=== PATIENT | female | born 1950 | race Caucasian/White ===

== ENCOUNTER 2021-02-04 11:47 | Day surgery (SDC) | payer MEDICARE, SELFPAY ==
--- NOTE | 2021-01-27 10:05 | NURSING ---
Unable to reach pt for PAT phone interview via phone number listed in demographics. Bridgette at Dr Whiteside's office has the same number and no additional phone numbers for the pt. Bridgette suggests to attempt PAT in couple days as more minutes may be added to phone if phone is a [id number] Phone.
--- NOTE | 2021-02-03 10:33 | EKG12_ITS ---
Test Reason : PRE OP Blood Pressure : / mmHG Vent. Rate : 072 BPM Atrial Rate : 072 BPM P-R Int : 138 ms QRS Dur : 084 ms QT Int : 416 ms P-R-T Axes : 033 016 039 degrees QTc Int : 455 ms Normal sinus rhythm with sinus arrhythmia Normal ECG Confirmed by ALEX GÓMEZ, YNES ([id number]), digital editor KIRTI WALKER ([id number]) on 02/04/2021 8:33:34 AM Referred By: Juju Whiteside Confirmed By:YNES JOHNSON MD
[2021-02-03 11:33] LABS: Hematocrit 40.4 % (37-47); Hemoglobin 13.5 g/dL (12.0-15.0); Mean Corp Hgb Conc 33.4 g/dL (32-36); Mean Corpuscular Hgb 30.8 pg (27.0-32.0); Mean Platelet Vol. 10.1 fl (6.2-12.0); Platelet Count 271 K/mm3 (150-450); RBC Distribution Width CV 12.3 % (11.6-14.6); RBC Distribution Width SD 41.9 fl (35.1-43.9); Red Blood Count 4.39 M/mm3 (4.2-5.4); White Blood Count 4.8 K/mm3 (4.4-11.0)
[2021-02-03 11:40] LABS: Prothrombin Time (Protime)PT. 12.5 SECONDS (11.7-14.9)
[2021-02-03 11:41] LABS: Partial Thromboplast Time 28.4 Seconds (24.1-36.2)
[2021-02-03 12:11] LABS: AST(SGOT) 24 U/L (15-37); Alanine Aminotransfer ALT/SGPT 35 U/L (13-56); Albumin, Serum 3.6 g/dL (3.2-5.0); Alkaline Phosphatase 82 U/L (45-117); Bilirubin, Direct 0.09 mg/dL (0.00-0.30); Globulin 3.8 g/dL (2.2-4.2); Protein, Total 7.4 g/dL (6.4-8.2)
--- NOTE | 2021-02-03 15:15 | PCM.HP.BLA ---
History and Physical Date of Admission: 02/04/21 Bernadette Son 1950 REFERRING PHYSICIAN: Talisha Daniel APRN.CNP CHIEF COMPLAINT: Rt inguinal hernia HPI: The patient is a 70 year old female presents with right groin pain. She notes this about two weeks ago. She notes a bulge in the location. She had previous laparoscopic left inguinal hernia repair with mesh. CT scan 12/06/2020 - small right inguinal hernia containing a short segment of non-obstructed small bowel. She denies obstructive gastrointestinal or urinary symptoms. PAST MEDICAL HISTORY ? Anemia, unspecified ? Benign neoplasm of colon ? Benign neoplasm of stomach ? Chronic low back pain ? Diverticulitis of colon (without mention of hemorrhage)(562.11) ? Iron deficiency anemia ? Mitral valve disorders(424.0) echo showed trivial MR. ? Osteoarthritis ? Other abnormal heart sounds heart murmur ? Snoring ? Unspecified hemorrhoids without mention of complication PAST SURGICAL HISTORY ? BREAST BIOPSY Left 05/12/2017 ? COLONOS W/REM POLYP SNARE diverticulosis, polyp at 30cm ? COLONOSCOPY 04/06/2016 ? D&C, DIAG AND/OR THERAPEUTIC ? EGD W/O BRSH SPECIMEN W/BX antral polyp ? HERNIA REPAIR HX 2015 left inguinal ? LAPAROSCOPIC CHOLEYCYSTECTOMY 2001 Cholecystectomy, lap ? LIGATE FALLOPIAN TUBE ? MAMMO STEREOTACTIC CORE BIOPSY LT 2001 ? PAST SURGICAL HISTORY OF 2000 vaginal fistula ? SIGMOIDOSCOPY 2002 ? TOTAL ABDOM HYSTERECTOMY 05/13/00 menorrhagia, enlarged uterus. Current Outpatient Medications ? calcium carbonate/vitamin D2 (CALCIUM + VITAMIN D ORAL) Take by mouth. 500 mg of calcium and 1000 units of vitamin d daily ? glucosamine/chondr del castillo A sod (OSTEO BI-FLEX ORAL) Take by mouth once daily. ? ascorbic acid, vitamin C, (VITAMIN C) 250 mg tablet Take 250 mg by mouth once daily. ? MULTIVITAMIN ORAL Take by mouth. ALLERGIES: Bactrim Ds [Sulfamethoxazole-Trimethoprim], Cold Medicines [Other], Demerol [Meperidine Hcl], and Vicodin [Hydrocodone-Acetaminophen] PERSONAL HISTORY: ? Smoking status: Former Smoker Quit date: 06/16/1969 Years since quittin.5 ? Smokeless tobacco: Never Used ? Tobacco comment: Quit 40 years ago after brief period of smoking Vaping Use ? Vaping Use: Never used Substance Use Topics ? Alcohol use: Yes Comment: 2/year ? Drug use: No FAMILY HISTORY ? Breast Cancer Mother ? Cancer Mother spinal ? Cancer Father throat and skin ? Diabetes Father pre-diabetes in later life when gained wt ? other (Other) Brother Brain/Spinal Disorder (from ) ? Cancer Brother Melenoma ? Diabetes Brother Pre diabetiic ? Cancer Brother Skin ? Thyroid Brother Cancer ? Hypertension Brother ? No Known Problems Brother ? Hypertension Brother ? other (Kidney Removed) Brother ? No Known Problems Sister ? Heart Maternal Grandfather ? Diabetes Paternal Grandmother ? COPD Daughter REVIEW OF SYSTEMS: General: The patient denies fatigue, denies weight loss, denies weight gain, denies feeling hot, and denies feelings of cold. Eyes: The patient denies glaucoma, denies eye injury/surgery, wears glasses or contacts. Ear/Nose/Throat: The patient denies allergies, denies hayfever, denies ear infections, and denies bloody noses. Cardiovascular: The patient denies chest pain, denies heart disease, denies high blood pressure,denies cardiac stent, denies prior heart attack, denies irregular heart beat, denies high cholesterol, denies poor circulation, denies heart failure, other cardiac issues, denies claudication, denies cold feet, denies peripheral arterial stent. Respiratory: The patient denies tuberculosis, denies pneumonia, denies frequent cough, denies pulmonary embolism, denies shortness of breath, and denies coughing up blood. Gastrointestinal: The patient denies difficulty swallowing, denies acid reflux, denies ulcers, denies vomiting, denies jaundice/hepatitis, denies gallbladder problems, denies black or tarry stools, denies hemorrhoids, denies bleeding from rectum, denies diverticulitis, NOTES constipation, denies diarrhea, denies loss of stool control, and denies hernias. Kidney/Bladder: The patient denies kidney stones, denies urine infections, and denies bloody urine. Skin: The patient denies a history of skin cancer, denies bleeding/changing moles, and denies a history of skin rash. Neurologic: The patient denies a history of epilepsy/convulsions, denies headaches, denies head/spinal injuries, and denies stroke/TIA. Psychiatric: The patient denies psychiatric medications, denies depression, and denies voices, denies substance abuse. Endocrine: The patient denies thyroid disorders, denies diabetes, and denies hormonal problems. Hematologic: The patient denies a history of bruising, denies bleeding, and denies anemia, denies blood clots. Infections: The patient denies a history of measles and mumps, denies rheumatic fever, and denies sexually transmitted diseases. Musculoskeletal: The patient denies back pain/injury, denies back problems, denies sciatica, denies knee/foot trouble, denies arthritis, or denies gout. When was patient's last Mammogram screening? N/A Last Colonoscopy: 2015 Tony Zarco SALES ORDER PROCESSOR PHYSICAL EXAMINATION: General: The patient is 70 year old female, well nourished, well hydrated in no acute distress. The patient is oriented to time, place, and person. VITALS: Pulse 102, temperature 36.8 ?C (98.2 ?F), height 149.9 cm (4' 11), weight 79.1 kg (174 lb 6.4 oz), SpO2 97 %. Body mass index is 35.22 kg/m?. Head ? Normocephalic. EOM intact with sclera clear and no icterus noted. Wearing glasses. Neck - supple with no jugular venous distention noted. Trachea is midline. Lungs ? clear to auscultation. Normal breath sounds. No rales/rhonchi/wheezing noted. No labored breathing noted, such as retractions. No cough heard. Heart ? normal S1 and S2 auscultated. No rubs/clicks/murmurs noted. Regular rate. Abdomen ? soft and benign. Normal bowel sounds. Possible bulge in the area of the right inguinal canal. Difficult to determine if any masses or organomegaly due to body habitus. Extremities ? no calf tenderness noted. No pitting edema noted. Skin ? normal skin integrity. Neurological ? gait normal, no focal deficits noted. Psych ? calm and appropriate IMPRESSION: right inguinal hernia PLAN: I have discussed the above with the patient. I have offered right inguinal hernia repair with mesh. I have explained the procedure to the patient. I have counseled the patient as to the risks of the procedure, including but not limited to: infection, bleeding, injury to any blood vessels/nerves, scar tissue, injury to any intraabdominal organs, injury to bowel/bladder, intraabdominal abscess/bleeding, recurrence of hernia, wound infections, complications of anesthesia, etc. ? the patient understands. The patient wishes to proceed. She wishes to have surgery at [facility]. I have encouraged her to return to this clinic sooner if any worsening signs/symptoms. I have answered all questions to the patient?s satisfaction and the patient has no further questions. Diagnoses: (K40.90) Right inguinal hernia (primary encounter diagnosis) (Z68.35) BMI 35.0-35.9,adult Return to Clinic: The patient is instructed to follow-up with me after the procedure.
[2021-02-04] VITALS (9 sets, daily range): BP systolic 145–163; BP diastolic 79–98; PULSE 79–96; RESP 16; TEMP 35.9–36.4; O2SAT 91–100; BMI 33.5
[2021-02-04] MEDS: Lactated Ringers 1,000 ML 75 ML IV ×2 (07:00→15:39)
[2021-02-04] MEDS: Cefazolin 2 GM in 0.9% Normal Saline 100 ML IV (14:06)
--- NOTE | 2021-02-04 15:12 | OP.PCM_ITS ---
Report of Operation Date of Procedure: 02/04/21 Pre-Operative Diagnosis: right inguinal hernia Post-Operative Diagnosis: right femoral hernia and direct inguinal hernia Surgery/Procedure Performed:: repair of right femoral hernia with plug/patch mesh Description of Surgical Findings:: direct inguinal hernia and femoral hernia noted Surgeon: Juju Whiteside quill skinner: Berlin Cook Type of Anesthesia: General Anesthesiologist: Melissa Perez Specimen's removed: none Estimated Blood Loss (mL): 20 ml Fluids Replaced: 1000 ml RL Description of Procedure: After informed consent was obtained, the patient was brought to the Operating Room. Appropriate time out protocol was followed. She was then placed in the supine position. The patient was then placed under anesthesia. The right groin area and lower torso and genitalia were then prepped with a sterile surgical skin preparation. Sterile surgical drapes were placed. This skin and subcutaneous tissues were then widely infiltrated with the local anesthetic. A skin incision was then made with a 15 blade scalpel over the hernia site in a transverse oblique fashion, after ascertaining proper landmarks. It was carried down to the subcutaneous tissues using sharp dissection. Any hemorrhage was adequately controlled with electrocautery. Division of the tissues along the incision line continued down to the external oblique fascia was identified. It was then divided along its fibers using sharp dissection carefully avoiding any injury to any blood vessels/nerves. The round ligament was then identified along the inguinal canal and it was then isolated using blunt dissection and tagged with a [place] drain. The hernia defect was identified as a direct inguinal hernia. There was also a femoral hernia noted. No indirect inguinal sac was identified. The repair of the hernia was then done in the [place] fashion using the plug/patch mesh. The confluence of the internal oblique and transversalis fascia was sutured at one point to the plug mesh which was positioned in the preperitoneal space; it was sutured medially to the pubic tubercle and inferiorly to Raul's ligament using interrupted 0 prolene suture. The round ligament was placed back in its proper anatomical position. The patch mesh was then placed to recreate the inguinal floor. This was done from the pubic tubercle to the level of overlying the femoral vessels and the internal ring was re-created and just large enough for the tip of my finger. The external oblique fascia was then reapproximated over the inguinal canal to close the roof of the inguinal canal with a running 0 vicryl suture, carefully avoiding any entrapment of nerves/blood vessels. Emma's fascia was reapproximated with interrupted 3-0 vicryl sutures. The skin incision was reapproximated with a running 4-0 Monocryl suture. Cavilon and steristrips were placed to reinforce the skin closure and a sterile opsite dressing was applied. The patient was brought from to the Recovery Room in stable condition. Complications none noted Admit VTE Documentation VTE Mechan Device Prophylaxis: SCD's
[2021-02-04] MEDS: Bupivacaine Mpf 0.5% 30 ML VIAL (15:15)
--- NOTE | 2021-02-04 15:40 | EX.PCM.DISCH ---
Discharge Instructions Follow Up Care Test Results: Test results from this visit will be discussed in further detail at your follow-up appointment, if applicable. Discharge Plan Admission Attending Provider: Juju Whiteside Primary Care Provider: Chang Martinez Instructions Additional Instructions / Restrictions: Recommended pain control regimen - May take 600 mg ibuprofen (Motrin) and then in 3-4 hours, may take 650 mg acetaminophen (Tylenol), then in 3-4 hours may take 600 mg ibuprofen, then in 3-4 hours may take 650 mg acetaminophen and so on for 2-3 days May take narcotic pain medication for pain that is not controlled by above and at night for comfort through the night Leave dressings in place May shower, do not scrub in the areas of the dressings as they may unravel. Do not soak - no tub baths/swimming Ice applied to areas of discomfort may help (recommend use of ice packs liberally) No lifting/pushing/pulling greater than 10 pounds for a month. Regular diet as tolerated, drink plenty of fluids. . For inguinal hernia repairs - sit in a Lazy-Boy type chair or similar position for comfort and elevate legs, place ice packs in the affected area. Please call my office for an appointment to see me in 1-2 weeks. Office number is If any questions, please call my office at and ask the preform machine operator for the general surgery nurses desk Discharge Orders/Prescriptions Prescriptions: New oxycodone-acetaminophen [Percocet] 5-325 mg tablet 1 tab PO Q8H PRN (Reason: pain) 5 Days Qty: 15 RF: 0 No Action Vitamin C 300 mg Tablet,Chewable 900 mg PO DAILY RF: 0 cranberry 400 mg Capsule 400 mg PO DAILY RF: 0 glucosamine-chondroitin [Osteo Bi-Flex] 250-200 mg Tablet 2 tab PO BID RF: 0 aspirin 81 mg Capsule 81 mg PO DAILY RF: 0 Referrals / Follow Up: Chang Martinez MD [Primary Care Provider] - Disposition Disposition (needs filled in before D/C Order can be placed): Home, Self Care
--- NOTE | 2021-02-04 16:05 | SUR.PHASEI ---
In PACU for phase 2.
--- NOTE | 2021-02-04 16:09 | SUR.PHASEI ---
Attempted to transition to phase 2; patient had emesis and nausea. remain in phase 1 and medicate per order.
== END 2021-02-04 17:40 | disposition home or self-care (01) ==
LOC: SDC 11:48 → AC 11:48
PROVIDERS: Anesthesiology; PCP Family Medicine; Referring Provider Surgery; Visit Provider Surgery
PROC: (CPT 49505; principal; 2021-02-04 13:20)
DX: K40.90 Unilateral inguinal hernia, without obstruction or gangrene, not specified as recurrent (principal); K41.90 Unilateral femoral hernia, without obstruction or gangrene, not specified as recurrent; M19.90 Unspecified osteoarthritis, unspecified site; Z87.891 Personal history of nicotine dependence
CPT/HCPCS: 00830; 49505; 49550; 36415; 80076; 85027; 85610; 85730; 93005; J7120; C1781; J2405

== ENCOUNTER 2021-09-09 10:45 | Day surgery (SDC) | payer MEDICARE, SELFPAY ==
[2021-09-09] VITALS (7 sets, daily range): BP systolic 123–140; BP diastolic 70–76; PULSE 77–89; RESP 14–16; TEMP 36.6–37.2; O2SAT 95–98; BMI 35.4
--- NOTE | 2021-09-09 09:03 | PCM.HP.BLA ---
History and Physical Date of Admission: 09/09/21 Bernadette Son 1950 ? ? REFERRING PHYSICIAN: Ofelia Gomez MD ? CHIEF COMPLAINT: Left Breast lesion ? HPI: The patient is a 70 year old female presents with high risk lesion via pathology from needle core breast biopsy. She had undergone left breast stereotactic biopsy done at [facility] Breast imaging on 08/18/2021. ? PATHOLOGY - Left breast, lower outer quadrant, core biopsies: - Benign breast tissue with florid usual ductal hyperplasia, sclerosing adenosis, small intraductal papillomas, and radial scar. Sections demonstrate benign breast parenchyma with multiple ducts involved by florid usual ductal hyperplasia which on immunohistochemical stains shows patchy ER positivity and a mosaic pattern with cytokeratin 5/6. ?Immunohistochemical stains for p40 and SMMS reveal the presence of myoepithelial cells in the small glands of the radial scar and no evidence of an invasive process. ? ? PAST MEDICAL HISTORY ? Anemia, unspecified ? ? Benign neoplasm of colon ? ? Benign neoplasm of stomach ? ? Chronic low back pain ? ? Diverticulitis of colon (without mention of hemorrhage)(562.11) ? ? Iron deficiency anemia ? ? Mitral valve disorders(424.0) ? ? echo showed trivial MR. ? Osteoarthritis ? ? Other abnormal heart sounds ? ? heart murmur ? Snoring ? ? Unspecified hemorrhoids without mention of complication ? ? PAST SURGICAL HISTORY ? BREAST BIOPSY Left 05/12/2017 ? BX OF BREAST; INCISIONAL Left 08/18/2021 ? COLONOSCOPY ? 04/06/2016 ? COLSC FLX W/RMVL OF TUMOR POLYP LESION SNARE TQ ? 01/24/2009 ? diverticulosis, polyp at 30cm ? DILATION & CURETTAGE DX&/THER NONOBSTETRIC ? ? ? EGD TRANSORAL BIOPSY SINGLE/MULTIPLE ? 01/24/2009 ? antral polyp ? HERNIA REPAIR HX ? 2016 ? left inguinal ? LAPAROSCOPY SURG CHOLECYSTECTOMY ? 2001 ? Cholecystectomy, lap ? LIG/TRNSXJ FLP TUBE ABDL/VAG APPR UNI/BI ? ? ? MAMMO STEREOTACTIC CORE BIOPSY LT ? 2001 ? PAST SURGICAL HISTORY OF ? 2000 ? vaginal fistula ? RPR 1ST FEM HRNA ANY AGE REDUCIBLE Right 02/04/2021 ? SIGMOIDOSCOPY ? 2002 ? TOTAL ABDOMINAL HYSTERECT W/WO RMVL TUBE OVARY ? 05/13/2000 ? menorrhagia, enlarged uterus. ? ? Current Outpatient Medications ? benzonatate (TESSALON PERLE) 100 mg capsule Take 1 capsule by mouth twice daily as needed for cough. (Patient not taking: Reported on 07/21/2021 ) ? fluticasone (FLONASE) 50 mcg/actuation nasal spray Use 2 Sprays in each nostril once daily. Rinse mouth after use. (Patient not taking: Reported on 07/21/2021 ) ? calcium carbonate/vitamin D2 (CALCIUM + VITAMIN D ORAL) Take by mouth. 500 mg of calcium and 1000 units of vitamin d daily ? glucosamine/chondr del castillo A sod (OSTEO BI-FLEX ORAL) Take by mouth once daily. ? ascorbic acid, vitamin C, (VITAMIN C) 250 mg tablet Take 250 mg by mouth once daily. ? MULTIVITAMIN ORAL Take by mouth once daily. ? ? ? ALLERGIES: Bactrim Ds [Sulfamethoxazole-Trimethoprim], Cold Medicines [Other], Demerol [Meperidine Hcl], and Vicodin [Hydrocodone-Acetaminophen] ? PERSONAL HISTORY: Social History ?Tobacco Use ? Smoking status: Former Smoker ? ? Quit date: 06/16/1969 ? ? Years since quittin.2 ? Smokeless tobacco: Never Used ? Tobacco comment: Quit 40 years ago after brief period of smoking Vaping Use ? Vaping Use: Never used Substance Use Topics ? Alcohol use: Yes ? ? Comment: 2/year ? Drug use: No ? FAMILY HISTORY ? Breast Cancer Mother ? ? Cancer Mother ? ? spinal ? Cancer Father ? ? throat and skin ? Diabetes Father ? ? pre-diabetes in later life when gained wt ? other (Other) Brother ? ? Brain/Spinal Disorder (from ) ? Cancer Brother ? ? Melenoma ? Diabetes Brother ? ? Pre diabetiic ? Cancer Brother ? ? Skin ? Thyroid Brother ? ? Cancer ? Hypertension Brother ? ? No Known Problems Brother ? ? Hypertension Brother ? ? other (Kidney Removed) Brother ? ? No Known Problems Sister ? ? Heart Maternal Grandfather ? ? Diabetes Paternal Grandmother ? ? COPD Daughter ? ? ? REVIEW OF SYSTEMS: ?General:???The patient denies fatigue, denies weight loss, denies weight gain, denies feeling hot, and denies feelings of cold. ?Eyes: ?The patient denies glaucoma, denies eye injury/surgery, wears glasses or contacts. ?Ear/Nose/Throat: ?The patient denies allergies, denies hayfever, denies ear infections, and denies bloody noses. ?Cardiovascular: ?The patient denies chest pain, denies heart disease, denies high blood pressure,denies cardiac stent, denies prior heart attack, denies irregular heart beat, denies high cholesterol, ?denies poor circulation, denies heart failure, other cardiac issues, denies claudication, denies cold feet, denies peripheral arterial stent. ?Respiratory: ?The patient denies tuberculosis, denies pneumonia, denies frequent cough, denies pulmonary embolism, denies shortness of breath, and denies coughing up blood. ?Gastrointestinal: ?The patient denies difficulty swallowing, denies acid reflux, denies ulcers, denies vomiting, denies jaundice/hepatitis, notes gallbladder problems, denies black or tarry stools, denies hemorrhoids, denies bleeding from rectum, denies diverticulitis, denies constipation, denies diarrhea, denies loss of stool control, and notes hernias. ?Kidney/Bladder: ?The patient denies kidney stones, notes urine infections, and denies bloody urine. ?Skin: ?The patient denies a history of skin cancer, denies bleeding/changing moles, and denies a history of skin rash. ?Neurologic: ?The patient denies a history of epilepsy/convulsions, denies headaches, denies head/spinal injuries, and denies stroke/TIA. ?Psychiatric: ?The patient denies psychiatric medications, denies depression, and denies voices, denies substance abuse. ?Endocrine: ?The patient denies thyroid disorders, denies diabetes, and denies hormonal problems. ?Hematologic: ?The patient denies a history of bruising, denies bleeding, and denies anemia, denies blood clots. ?Infections: ?The patient notes a history of measles and mumps, denies rheumatic fever, and denies sexually transmitted diseases. ?Musculoskeletal: ?The patient denies back pain/injury, denies back problems, denies sciatica, denies knee/foot trouble, denies arthritis, or denies gout. ? ? PHYSICAL EXAMINATION: ? General: The patient is 70 year old female, well nourished, well hydrated in no acute distress. The patient is oriented to time, place, and person. ? VITALS: Blood pressure 164/91, pulse 88, temperature 36.9 ?C (98.4 ?F), height 149.9 cm (4' 11), weight 77.6 kg (171 lb), SpO2 97 %. Body mass index is 34.54 kg/m?. ? Head: Normal cephalic, atraumatic ? Eyes: pupils are equally round, sclera are clear/anicteric ? Neck is supple with no tracheal deviation ? Chest/breast: slight ecchymoses at biopsy site - left breast lower outer ? Respiratory: Normal respiratory excursion and pattern. ? Abdominal exam: benign ? Extremities: no clubbing, cyanosis or edema. ? Neuro: non focal ? Psych: normal mood ? ? IMPRESSION: high risk breast pathology ? PLAN: I have discussed the above with the patient. I have explained radial scar to patient. Though I suspect that she is at low risk for breast cancer given the above, she does have a family history of breast cancer (sister) I have offered left breast biopsy via wire localization. I have explained the procedure to the patient. I have counseled the patient as to the risks of the procedure, including but not limited to: infection, bleeding, injury to any blood vessels/nerves, scar tissue, wound infections, complications of anesthesia, etc. ? the patient understands. The patient wishes to proceed. ? ? I have answered all questions to the patient?s satisfaction and the patient has no further questions. ? ? 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
[2021-09-09] MEDS: Lactated Ringers 1,000 ML 75 ML IV (11:18)
--- NOTE | 2021-09-09 11:36 | BI_ITS ---
SURGICAL BREAST SPECIMEN RADIOGRAPH CLINICAL: Document presence of tissue clip marker in biopsy specimen. FINDINGS: Specimen shows presence of tissue clip marker. Electronically Signed: Christiano Kidd MD at 13:31 EDT , BI/Breast Biopsy Specimen
[2021-09-09] MEDS: Lidocaine 1% /Epi 1:100 (20ml) 20 ML Vial (12:40)
[2021-09-09] MEDS: Cefazolin 2 GM in 0.9% Normal Saline 100 ML IV (12:40)
--- NOTE | 2021-09-09 13:16 | BR_PTH ---
PATIENT: HERMELINDA DEJESUS LOC: [facility] [place] U#:[id number] AGE/SX: 70/F ROOM: RE09/09/[address]: Dr. Juju Whiteside MD : 1950 BED: DIS: 09/09/2021 SPEC #: [id number] RECD: 09/09/21 13:22 STATUS: PEE RE #: [id number] JUDY: 09/09/21 13:[address]: Juju Whiteside DEPT: SURGICAL PATHOLOGY RECD BY: Geeta Shaver ENTERED: 09/10/21 10:58 SP TYPE: MAMOPLASTY OTHR DR: Dr. Chang Martinez MD Tissues: Left breast, NOS Procedures: Surgery Specimen Level V HEADER OPERATION: Left breast biopsy via needle localization PRE-OP DIAGNOSIS: High risk breast pathology TISSUE SUBMITTED: Left breast lesion MICROSCOPIC DIAGNOSIS Left breast, excisional biopsy with needle localization: Florid intraductal hyperplasia with focal atypia. Fibrocystic changes and adenosis. Changes consistent with previous biopsy site. Negative for malignancy. RAMA:juarez 09/12/2021 COMMENT Case has been reviewed in consultation with Dr. Santos who concurs with the above diagnosis. IDC:AM MICROSCOPIC DESCRIPTION Slides are reviewed. GROSS DESCRIPTION Received fresh and postfixed in formalin is one container labeled with the patient's name and not further designated. The specimen consists of a piece of fibroadipose tissue with needle localization measuring 7?x 3 x 2.5 cm. The specimen is not oriented. The specimen is inked, serially sectioned and reveal rosas-yellow fibroadipose cut surfaces without any mass lesion. The entire specimen is submitted in 17 cassettes. Sections are submitted after additional fixation. / RAMA:juarez 09/10/2021 TC:5 CPT: 78123
--- NOTE | 2021-09-09 13:31 | PCM.OPRPT ---
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 Appropriate time out protocol was followed. The patient was then placed in the prone position on the [place] stereotactic table. The patient?s left breast was placed in the opening at the head of the table. A music composition teacher compression mammogram was then obtained in the lateral view. The marker clip that was previously placed was identified. Stereo pictures of the lesion were then taken for XYZ coordinates. The Kopans needle was then positioned where it would be entering into the patient?s breast. The skin at this site was then cleansed with a surgical skin preparation. The skin and subcutaneous tissues at this site were then infiltrated with 1% xylocaine. The Kopans needle was then positioned into the patient?s breast at the proper coordinates of depth. A music composition teacher film was obtained which revealed the wire in proper position. The patient was then placed in the supine position and the wire was taped into place. A unilateral mammogram in the CC and MLO view were then taken for use in the OR. The patient tolerated this portion of the procedure well and was brought to the AC awaiting surgery in the OR. The patient was then brought to the Operating Room. Appropriate time out protocol was followed. The patient was then placed on the operating table in the supine position. A wire had already been placed in the stereotactic biopsy room in the radiology department as described above. The left breast with the wire in placed was then prepped with a sterile surgical skin preparation and sterile surgical drapes were placed. The skin and subcutaneous tissues at the site of the breast lesion was then infiltrated with 1% xylocaine with epinephrine. A transverse skin incision was then made at the wire entrance site in the lateral aspect of the breast, with a 15 blade scalpel and carried down through to the subcutaneous tissues. Hemostasis was controlled with electrocautery. The wire was then palpated out within the breast tissue. The breast tissue surrounding the wire was then carefully palpated out and from the surrounding tissues using electrocautery. The breast tissue, once from the breast, was then forwarded to the radiology department, where a specimen mammogram revealed that the marker clip was within the specimen. The breast tissue was then forwarded to pathology for analysis. The wound cavity was carefully examined. No further suspicious tissue was palpated or visualized. Hemostasis was carefully controlled with electrocautery. The subdermal tissues were then approximated with vicryl suture. The incision was then reapproximated close using running monocryl suture. Cavilon and steristrips were then placed to reinforce the skin closure. Sponge, needle, and instrument count were verified and correct at the time of skin closure. A sterile dressing was then applied. The patient was then brought to the Recovery Room in stable condition. Complications none noted Admit VTE Documentation VTE Present on Admission: Yes VTE Mechan Device Prophylaxis: SCD's
== END 2021-09-09 23:59 | disposition home or self-care (01) ==
LOC: SDC 10:46 → AC 10:49
PROVIDERS: PCP Family Medicine; Visit Provider Surgery
PROC: (CPT 19101; principal; 2021-09-09 12:15)
DX: N60.22 Fibroadenosis of left breast (principal); Z79.899 Other long term (current) drug therapy; Z87.891 Personal history of nicotine dependence
CPT/HCPCS: 19101; 19281; 76098; 88305; 88307; J7120; J2405

== ENCOUNTER → 2023-03-17 | Outpatient (CLI) | payer MEDICARE, SELFPAY ==
--- NOTE | 2023-03-16 | EGD_PTH ---
PATIENT: HERMELINDA DEJESUS LOC: [facility] U#:[id number] AGE/SX: 72/F ROOM: RE03/17/[address]: Dr. Juju Whiteside MD : 1950 BED: DIS: 03/17/2023 SPEC #: [id number] RECD: 03/17/23 15:02 STATUS: PEE REQ #: [id number] JUDY: 03/16/23 00:[address]: Juju Whiteside DEPT: SURGICAL PATHOLOGY RECD BY: Geeta Shaver ENTERED: 03/18/23 08:46 SP TYPE: EGD BIOPSY VERA DR: Dr. Chang Martinez MD Tissues: A - Gastric mucous membrane B - Esophagus, NOS Procedures: Special Stain Group II Surgery Specimen Level IV Alcian Blue/PAS (control) HEADER OPERATION: EGD / colonoscopy PRE-OP DIAGNOSIS: Epigastric pain, nausea, rectal pain TISSUE SUBMITTED: A - Antral biopsy H/H, B - Gastroesophageal junction biopsy MICROSCOPIC DIAGNOSIS A. Gastric antrum, biopsy: Chronic gastritis. See comment. B. Gastroesophageal junction, biopsy: Fragments of benign squamous mucosa. Gastroesophageal junctional mucosa consisting primarily of squamous mucosa. No evidence of goblet cell metaplasia. See comment. AM:juarez 03/19/2023 COMMENT A. The results of immunohistochemistry for Helicobacter pylori will be reported separately ([id number]). B. Alcian blue/PAS stain with matched control supports the above diagnosis. MICROSCOPIC DESCRIPTION Slides are reviewed. GROSS DESCRIPTION A - Received in fixative is one container labeled with the patient's name and designated antral biopsy. The specimen consists of two irregular fragments of light rosas soft tissue that in aggregate measure 0.6 x 0.5 x 0.1 cm. The specimen is totally submitted in one cassette. B - Received in fixative is one container labeled with the patient's name and designated GE junction biopsy. The specimen consists of one irregular fragment of light rosas soft tissue that measures 0.3 x 0.2 x 0.1 cm. The specimen is totally submitted in one cassette. / AM:juarez 03/18/2023 TC:3 CPT: 87485 x2, 18424
--- NOTE | 2023-03-17 | IMM_PTH ---
PATIENT: HERMELINDA DEJESUS LOC: [facility] U#:[id number] AGE/SX: 72/F ROOM: RE03/17/[address]: Dr. Juju Whiteside MD : 1950 BED: DIS: 03/17/2023 SPEC #: [id number] RECD: 03/18/23 14:10 STATUS: PEE REQ #: [id number] JUDY: 03/17/23 00:[address]: Juju Whiteside DEPT: IMMUNOHISTOCHEMISTRY RECD BY: Tonja Ramsey ENTERED: 03/18/23 14:12 SP TYPE: IMMUNO OTHR DR: Dr. Chang Martinez MD Tissues: A - Stomach, NOS Procedures: H Pylori (initial) PHYSICIAN & INSTITUTION [place] [id number] SPECIMEN INFORMATION: Tissue Source: A - Antral biopsy Clinical Info: Epigastric pain, nausea, rectal pain Specimen Number: [id number] CPT code: 57331 METHODOLOGY: Deparaffinized sections of prefer/formalin-fixed tissue or PAP/DQ stained slides are incubated with monoclonal/polyclonal antibodies/oligonucleotide probes. Localization is made via biotin free immunoperoxidase method. Appropriate controls are performed and reacted as expected. Results on target cell population are indicated in the following table: RESULTS: ANTIBODY / CLONE RESULT Block A H Pylori (polyclonal) negative These tests were developed and their performance characteristics determined by [facility]. They may not have been cleared or approved by the [place]. Food and Drug Administration. The FDA has determined that such clearance or approval is not necessary. The above immunohistochemical/dualISH markers are ordered and reviewed by the Pathologist. INTERPRETATION: A. Antrum, biopsy: Negative for Helicobacter pylori organisms. AM:juarez 03/19/2023
== END | disposition home or self-care (01) ==
LOC: LABSPEC 15:08
PROVIDERS: PCP Family Medicine; Referring Provider Surgery; Visit Provider Surgery
DX: K29.50 Unspecified chronic gastritis without bleeding (principal); R10.13 Epigastric pain; R11.0 Nausea; K62.89 Other specified diseases of anus and rectum
CPT/HCPCS: 88305; 88313; 88342